=== PATIENT | female | born 1970 | race Asian ===

== ENCOUNTER 2018-10-28 11:57 | Outpatient (CLI) | payer OTHER ==
[~2018-10-28 11:57] MED LIST: AMOX1TAB5 PO; BACTRIM DS TAB1 EACH PO
== END 2018-10-28 12:03 | disposition home or self-care (01) ==
LOC: MAMO-SONO 11:57
DX: Z12.31 Encounter for screening mammogram for malignant neoplasm of breast (principal); Z87.898 Personal history of other specified conditions; N60.11 Diffuse cystic mastopathy of right breast; N60.12 Diffuse cystic mastopathy of left breast; N63.10 Unspecified lump in the right breast, unspecified quadrant; N63.20 Unspecified lump in the left breast, unspecified quadrant